=== PATIENT | female | born 1990 ===

== ENCOUNTER 2024-05-24 11:10 | Emergency (ER) | payer OTHER ==
[2024-05-24] MEDS: Acetaminophen 500 MG Tab PO ONE (13:26)
[2024-05-24] MEDS: Ketorolac 30 MG/ML SDV IVPUSH ONE (13:26)
[2024-05-24] MEDS: Dexamethasone 4 MG Tab PO ONE (13:26)
[2024-05-24 13:33] LABS: EOSINOPHILS ABSOLUTE AUTO 0.01 K/uL (0.00-0.45); EOSINOPHILS PERCENT AUTO 0.3 % (0.0-6.0); HEMATOCRIT 39.8 % (37.0-47.0); HEMOGLOBIN 13.2 g/dL (12.0-16.0); IMMATURE GRAN ABSOLUTE AUTO 0.01 K/uL (0.00-0.05); IMMATURE GRAN PERCENT AUTO 0.3 % (0.0-0.4); LYMPHOCYTES ABSOLUTE AUTO 1.51 K/uL (1.00-4.80); LYMPHOCYTES PERCENT AUTO 38.4 % (24.0-44.0); MEAN CORPUSCULAR HEMOGLOBIN 28.4 pg (28.0-32.0); MEAN CORPUSCULAR HGB CONC 33.2 g/dL (32.0-36.0); MEAN CORPUSCULAR VOLUME 85.6 fL (83.0-99.0); MEAN PLATELET VOLUME 9.5 fL (9.4-12.3); MONOCYTES ABSOLUTE AUTO 0.55 K/uL (0.00-0.80); NEUTROPHILS ABSOLUTE AUTO 1.85 K/uL (1.80-7.70); PLATELET COUNT,PLT 380 K/uL (150-400); RED BLOOD CELL COUNT 4.65 M/uL (4.10-5.30); WHITE BLOOD CELL COUNT,WBC 3.93 K/uL (3.9-11.3)
[2024-05-24 14:04] LABS: A/G RATIO 0.8 (0.9-1.6); ALBUMIN 3.5 g/dL (3.4-5.0); BILIRUBIN TOTAL 0.6 mg/dL (0.2-1.0); C-REACTIVE PROTEIN 0.48 mg/dL (<0.3); CARBON DIOXIDE,CO2 23.2 mmol/L (21.0-32.0); CREATININE 0.8 mg/dL (0.6-1.0); EST CRCL DRUG DOSING (CG) 79.85 mL/min; POTASSIUM,K 3.5 mmol/L (3.5-5.1); PROTEIN TOTAL,TP 8.1 g/dL (6.4-8.2)
[2024-05-24] MEDS: Iopamidol 755 MG/ML 500 ML Multipack Bottle IVPUSH STA (14:10)
== END 2024-05-24 14:55 | disposition home or self-care (01) ==
LOC: MW.ED 11:10
DX: J02.9 Acute pharyngitis, unspecified (principal); L04.0 Acute lymphadenitis of face, head and neck
CPT/HCPCS: 36415; 70491; 80053; 84703; 85025; 85652; 86140; 87651; 96374; 99284; A9270; J1885; J8540; Q9967